=== PATIENT | female | born 1930 | race Caucasian/White ===

== ENCOUNTER → 2016-12-10 | Outpatient (CLI) | payer BC ==
[~2016-12-10] MED LIST: ASPI81TA28 PO; BUTA1CAP17 PO; CALC600T9 PO; CHOL20009 PO; CIPR-255 PO; CLOP1TAB15 PO; DESL1TAB5 PO; HYZ/50125 PO; LEVO25TA5 PO; PRAV10TA39 PO; SYN75 PO; TOPI25TA55 PO
[2016-12-10 13:29] LABS: ALT/SGPT 19 U/L (12-78); BLOOD UREA NITROGEN 21 mg/dl (7-18); BUN/CREATININE RATIO 16.5 (10-20); CALCIUM 9.5 mg/dl (8.5-10.1); CARBON DIOXIDE 27 mmol/L (21-32); CHLORIDE 108 mmol/L (98-107); CHOLESTEROL 179 mg/dl (0-200); GLUCOSE 99 mg/dl (70-99); POTASSIUM 3.9 mmol/L (3.5-5.1); SODIUM 140 mmol/L (136-145)
[2016-12-10 13:40] LABS: HDL CHOLESTEROL 60 mg/dl; THYROID STIMULATING HORMONE 0.845 uIu/ml (0.300-4.500); TRIGLYCERIDES 97 mg/dl (0-150); VERY LOW DENSITY LIPOPROT CALC 19 mg/dl
== END | disposition home or self-care (01) ==
LOC: C.LABMFLN 08:41
PROVIDERS: ATTEND Family Medicine
DX: G43.009 Migraine without aura, not intractable, without status migrainosus (principal); I10 Essential (primary) hypertension; E78.00 Pure hypercholesterolemia, unspecified; E03.9 Hypothyroidism, unspecified; L57.0 Actinic keratosis; E55.9 Vitamin D deficiency, unspecified

== ENCOUNTER 2017-01-03 09:38 | Emergency (ER) | payer BC ==
[~2017-01-03] VITALS: Ht 162.6 cm; Wt 75.9 kg
[~2017-01-03 09:38] MED LIST changes: -CALC600T9 PO; -SYN75 PO
[2017-01-03 09:40] VITALS: TEMP 36.7; Ht 162.6 cm; Wt 75.9 kg
[2017-01-03] MEDS ORDERED: SYN75 PO (10:21)
[2017-01-03] MEDS ORDERED: CALC600T9 PO (10:21)
--- NOTE | 2017-01-03 10:34 | EMERGENCY ROOM VISIT NOTE ---
History Report prepared by Lani: Leanna Gomez Under the Supervision of: Dr. Corby Stafford M.D. First contact with patient: 09:58 Chief Complaint: EYE ASSESSMENT Stated Complaint: VISION PROBLEMS - SEEING SPOTS History of Present Illness The patient is a 86 year old female who presents to the Emergency Room for an eye assessment. She states she is seeing black spots in her right eye. The symptoms started about 3-4 hours ago when she woke up. Her son states that it occurred yesterday but she did not tell anyone. 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 The patient has a history of migraines. The patient denies any pain in her right eye. She also denies a history of glaucoma. Source of History: patient, family (son) Onset: [employer] Position: eye (right) Quality: other (black spots) Timing: constant Note: Patient denies any pain. Review of Systems All systems have been listed, reviewed, and are negative other than those previously mentioned. Please see Additional Medical History Sheet. Past Medical & Surgical Medical Problems: (1) History of migraine (2) Hypertension (3) Pure Hypercholesterolem (4) TIA (transient ischemic attack) Family History Cancer Diabetes mellitus Gallbladder disease Heart disease Hypertension Kidney disease Kidney stones Lung disease Seizures Social History Smoking Status: Never Smoker Marital Status: single Housing Status: lives with family Occupation Status: retired Current/Historical Medications Scheduled Aspirin (Aspirin Ec), 81 MG PO DAILY Calcium Carbonate-Vitamin D (Calcium + D), 1 TAB PO DAILY Cholecalciferol (Vitamin D), 2,000 INTER.UNIT PO DAILY Clopidogrel (Plavix), 75 MG PO DAILY Hctz/Losartan (Hyzaar 12.5MG/50MG), 1 TAB PO DAILY Levothyroxine Sodium (Synthroid), 75 MCG PO QAM Topiramate (Topamax), 25 MG PO HS Scheduled PRN Svmcoxssqo-Kqzqsgxgfzdar-Zhiwu (Fioricet), 1 CAP PO Q8 PRN for Headache Allergies Coded Allergies: Atorvastatin (Verified Allergy, Unknown, UNKN, 01/03/17) Cholestyramine (Verified Allergy, Unknown, UNKN, 01/03/17) Ibandronic Acid (Verified Allergy, Unknown, unkn, 01/03/17) Simvastatin (Verified Allergy, Unknown, UNKN, 01/03/17) Physical Exam Vital Signs Date Time Temp Pulse Resp B/P (MAP) Pulse Ox O2 Delivery O2 Flow Rate FiO2 01/03/17 10:40 54 18 151/77 96 01/03/17 09:40 36.7 59 18 150/84 97 Room Air Physical Exam GENERAL: Patient awake, alert, oriented x 3. Patient follows commands. Patient does not appear toxic. Patient is adequately hydrated and well- nourished. Patient is under no distress. SKIN: No erythema, pallor, cyanosis or rash HEENT: Normal head, pupils equal, reactive to light and accommodation, EOMI. Limited funduscopic exam reveals normal discs vessels and background. Ears normal. Oral cavity and posterior pharynx appear normal. Neck: Without adenopathy, no neck vein distention. LUNGS: Clear to auscultation. No wheezes, no rales, no rhonchi. HEART: No murmurs. No gallops. No rubs. NEUROLOGIC: Cranial nerves II-XII within normal limits. No gross motor sensory function deficits. Medical Decision & Procedures ED Course 0958: Past medical records reviewed. The patient was evaluated in room A4B. A complete history and physical examination was performed. 1010: I spoke with Dr. Mcguire of ophthalmology regarding the patient's treatment plan. He felt that the patient did not need to be seen emergently today. He will follow-up with the patient in the office tomorrow morning. 1023: Upon reevaluation, the patient appeared to have improvement of her symptoms. I discussed today's findings with the patient and her son. They expressed understanding and verbalized agreement of the treatment plan. The patient was discharged home. Medical Decision The differential diagnoses includes retinal detachment, vitreous hemorrhage, glaucoma. The patient is here with black spots out of her right eye. 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 Exam today does not reveal any hemorrhages or obvious physical findings on funduscopic exam. I discussed care with Dr. Martino over the phone. He will follow the patient in his office tomorrow. He does not feel that anything requires treatment today. I discussed this with the patient and another family member. Most likely the patient has a small vitreous hemorrhage. Medication Reconcilliation Current Medication List: was personally reviewed by me Blood Pressure Screening Patient's blood pressure: Elevated blood pressure Blood pressure disposition: Elevated BP felt to be situational Consults Time Called: 1008 Consulting Physician: Dr. Mcguire Returned Call: [address] Mcguire of ophthalmology regarding the patient's treatment plan. He felt that the patient did not need to be seen emergently today. He will follow-up with the patient in the office tomorrow morning. Impression Primary Impression: Vitreous hemorrhage of right eye Scribe Attestation The scribe's documentation has been prepared under my direction and personally reviewed by me in its entirety. I confirm that the note above accurately reflects all work, treatment, procedures, and medical decision making performed by me. Departure Information Dispostion Home / Self-Care Referrals Art Guan M.D. (PCP) Romario Mcguire M.D. Forms HOME CARE DOCUMENTATION FORM, IMPORTANT VISIT INFORMATION, WORK / SCHOOL INSTRUCTIONS Patient Instructions My [facility] Additional Instructions Call Dr. Sosa's office tomorrow morning for an appointment tomorrow. Return here sooner if your vision gets much worse. REST
[2017-01-03 10:40] VITALS: BP 151/77; PULSE 54; O2SAT 96
== END 2017-01-03 10:42 | disposition home or self-care (01) ==
LOC: C.EDB 09:39 → C.EDA 10:42
DX: H43.11 Vitreous hemorrhage, right eye (principal); I10 Essential (primary) hypertension; E78.00 Pure hypercholesterolemia, unspecified; Z86.73 Personal history of transient ischemic attack (TIA), and cerebral infarction without residual deficits; Z79.82 Long term (current) use of aspirin; Z79.899 Other long term (current) drug therapy; Z88.8 Allergy status to other drugs, medicaments and biological substances; Z80.9 Family history of malignant neoplasm, unspecified; Z83.3 Family history of diabetes mellitus; Z83.79 Family history of other diseases of the digestive system; Z82.49 Family history of ischemic heart disease and other diseases of the circulatory system; Z84.1 Family history of disorders of kidney and ureter; Z82.0 Family history of epilepsy and other diseases of the nervous system

== ENCOUNTER 2017-05-07 18:04 | Emergency (ER) | payer BC ==
[~2017-05-07] VITALS: Ht 162.6 cm; Wt 79.0 kg
[~2017-05-07 18:04] MED LIST changes: +CALC600T9 PO; -CIPR-255 PO; -DESL1TAB5 PO; -LEVO25TA5 PO; -PRAV10TA39 PO; +SYN75 PO
[2017-05-07 18:25] VITALS: BP 149/86; PULSE 59; TEMP 36.4; O2SAT 97; Ht 162.6 cm; Wt 79.0 kg
--- NOTE | 2017-05-07 19:06 | EMERGENCY ROOM VISIT NOTE ---
ED Visit Note First contact with patient: 18:49 I have seen and examined this patient with Fransisco Gilmore and generally agree with the treatment plan as discussed. Problem List Medical Problems: (1) History of migraine Status: Chronic (2) Hypertension Status: Chronic (3) TIA (transient ischemic attack) Status: Resolved Current/Historical Medications Scheduled Aspirin (Aspirin Ec), 81 MG PO DAILY Calcium Carbonate-Vitamin D (Calcium + D), 1 TAB PO DAILY Cholecalciferol (Vitamin D), 2,000 INTER.UNIT PO DAILY Clopidogrel (Plavix), 75 MG PO DAILY Hctz/Losartan (Hyzaar 12.5MG/50MG), 1 TAB PO DAILY Levothyroxine Sodium (Synthroid), 75 MCG PO QAM Topiramate (Topamax), 25 MG PO HS Scheduled PRN Hqlfoxrcsr-Yeooidwrpmavz-Lotnm (Fioricet), 1 CAP PO Q8 PRN for Headache Allergies Coded Allergies: Atorvastatin (Verified Allergy, Unknown, UNKN, 01/03/17) Cholestyramine (Verified Allergy, Unknown, UNKN, 01/03/17) Ibandronic Acid (Verified Allergy, Unknown, unkn, 01/03/17) Simvastatin (Verified Allergy, Unknown, UNKN, 01/03/17) Vital Signs Date Time Temp Pulse Resp B/P (MAP) Pulse Ox O2 Delivery O2 Flow Rate FiO2 05/07/17 18:25 36.4 59 18 149/86 97 Room Air Departure Information Referrals Art Guan M.D. (PCP) Patient Instructions My [facility]
--- NOTE | 2017-05-07 19:44 | DIAGNOSTIC IMAGING REPORT ---
L FOREARM 2 VIEWS ROUTINE CLINICAL HISTORY: Fall. Left forearm injury trauma. Pain. COMPARISON: None. DISCUSSION: The bones and joint spaces appear intact. There is no evidence of fracture, dislocation or bony disease. There is no evidence for soft tissue swelling. IMPRESSION: Negative study. The above report was generated using voice recognition software. It may contain grammatical, syntax or spelling errors. Electronically signed by: Bird Hernandez M.D. 05/07/2017 7:43 PM Dictated Date/Time: 05/07/2017 7:42 PM
--- NOTE | 2017-05-07 19:46 | DIAGNOSTIC IMAGING REPORT ---
L HAND MIN 3 VIEWS ROUTINE CLINICAL HISTORY: Fall. Left hand pain trauma. Pain. COMPARISON: None. DISCUSSION: Moderate generalized degenerative change. No well-defined fracture. No evidence for dislocation. There is no evidence for soft tissue swelling. IMPRESSION: Degenerative change. No acute bony abnormality. The above report was generated using voice recognition software. It may contain grammatical, syntax or spelling errors. Electronically signed by: Bird Hernandez M.D. 05/07/2017 7:44 PM Dictated Date/Time: 05/07/2017 7:43 PM
--- NOTE | 2017-05-07 19:47 | DIAGNOSTIC IMAGING REPORT ---
R HAND MIN 3 VIEWS ROUTINE CLINICAL HISTORY: Fall. Right hand pain COMPARISON: None. DISCUSSION: Generalized degenerative change. No evidence for fracture or dislocation. There is no evidence for soft tissue swelling. IMPRESSION: Generalized degenerative change. No acute abnormality. The above report was generated using voice recognition software. It may contain grammatical, syntax or spelling errors. Electronically signed by: Bird Hernandez M.D. 05/07/2017 7:46 PM Dictated Date/Time: 05/07/2017 7:45 PM
--- NOTE | 2017-05-08 00:58 | EMERGENCY ROOM VISIT NOTE ---
History First contact with patient: 18:49 Chief Complaint: FALL Stated Complaint: FALL - LARGE SWELLING ON L ARM History of Present Illness The patient is a 87 year old female who presents to the Emergency Room with complaints of injury to bilateral hands and left forearm after falling earlier today. The patient states she was walking up a flight of stairs, when she fell forward onto her outstretched hands, and caused her injuries. She is on Plavix and aspirin, and has had noted bruising to the left arm particularly. The patient did not strike her head, abdomen, or legs. He was able to ambulate after the injury. No significant lacerations. She rates her overall discomfort a 2/10. Review of Systems More than 10 systems were reviewed and otherwise negative with the exception of history of present illness. Past Medical/Surgical History Medical Problems: (1) History of migraine (2) Hypertension (3) Pure Hypercholesterolem (4) TIA (transient ischemic attack) Family History Cancer Diabetes mellitus Gallbladder disease Heart disease Hypertension Kidney disease Kidney stones Lung disease Seizures Social History Smoking Status: Never Smoker Marital Status: single Housing Status: lives with family Occupation Status: retired Current/Historical Medications Scheduled Aspirin (Aspirin Ec), 81 MG PO DAILY Calcium Carbonate-Vitamin D (Calcium + D), 1 TAB PO DAILY Cholecalciferol (Vitamin D), 2,000 INTER.UNIT PO DAILY Clopidogrel (Plavix), 75 MG PO DAILY Hctz/Losartan (Hyzaar 12.5MG/50MG), 1 TAB PO DAILY Levothyroxine Sodium (Synthroid), 75 MCG PO QAM Topiramate (Topamax), 25 MG PO HS Scheduled PRN Zldvgoupnf-Hcecapwrhxieb-Lzxii (Fioricet), 1 CAP PO Q8 PRN for Headache Physical Exam Vital Signs Date Time Temp Pulse Resp B/P (MAP) Pulse Ox O2 Delivery O2 Flow Rate FiO2 05/07/17 18:25 36.4 59 18 149/86 97 Room Air Physical Exam VITALS: Vitals are noted on the nurse's note and reviewed by myself. Vital signs stable. GENERAL: Well-developed, well-nourished, white female, who is in no acute distress and resting comfortably. Patient is cooperative with the examination. HEAD: Normocephalic atraumatic. NECK: Supple without nuchal rigidity. No lymphadenopathy. No thyromegaly. Cervical spine is nontender. HEART: Regular rate and rhythm LUNGS: Clear to auscultation bilaterally without wheezes, rales or rhonchi. No retractions or accessory muscle use. MUSCULOSKELETAL: Bruising is noted to the lateral aspect of the left midforearm. There is tenderness in this area. There is additional tenderness into the mid palm of the left and right hands. Neurovascular status is intact bilateral upper extremities. No significant lacerations are noted. Neurovascular status is intact. No hip or lower extremity tenderness noted. NEURO: Patient was alert and oriented to person place and time. CN II through XII grossly intact. Medical Decision & Procedures ER Provider Diagnostic Interpretation: L FOREARM 2 VIEWS ROUTINE CLINICAL HISTORY: Fall. Left forearm injury trauma. Pain. COMPARISON: None. DISCUSSION: The bones and joint spaces appear intact. There is no evidence of fracture, dislocation or bony disease. There is no evidence for soft tissue swelling. IMPRESSION: Negative study. L HAND MIN 3 VIEWS ROUTINE CLINICAL HISTORY: Fall. Left hand pain trauma. Pain. COMPARISON: None. DISCUSSION: Moderate generalized degenerative change. No well-defined fracture. No evidence for dislocation. There is no evidence for soft tissue swelling. IMPRESSION: Degenerative change. No acute bony abnormality. R HAND MIN 3 VIEWS ROUTINE CLINICAL HISTORY: Fall. Right hand pain COMPARISON: None. DISCUSSION: Generalized degenerative change. No evidence for fracture or dislocation. There is no evidence for soft tissue swelling. IMPRESSION: Generalized degenerative change. No acute abnormality. ED Course Physical exam and history were performed. Nursing notes, EMR, and Medication List were personally reviewed. Patient appears to have fallen up stairs causing injury to her bilateral hands and her left arm. The patient does not appear to have struck her head and does not have outward signs of trauma around the head, neck, or lower extremities. X -rays were obtained and reviewed by myself and radiology showing no acute fractures or dislocations. The case was discussed with my attending physician, Dr. Queen, who also independently evaluated the patient. We feel that she is well for discharge home. She may use Tylenol and ice for pain control. She is to follow with her primary care physician with any ongoing or persistent symptoms. She was pleased with plan of care and voiced understanding. She was discharged home under the care of of her son. The chart was completed utilizing [employer] Voice Recognition Software. Grammatical errors, random word insertions, pronoun errors, and incomplete sentences are an occasional consequence of this system due to software limitations, ambient noise, and hardware issues. Any formal questions or concerns about the content, text, or information contained within the body of this dictation should be directly addressed to the provider for clarification. . Medical Decision Differential diagnosis includes, but is not limited to: Sprain, strain, fracture , dislocation, subluxation, contusion, and others Impression Primary Impression: Fall Additional Impression: Contusion of multiple sites Departure Information Dispostion Home / Self-Care Condition GOOD Referrals Art Guan M.D. (PCP) Forms HOME CARE DOCUMENTATION FORM, IMPORTANT VISIT INFORMATION Patient Instructions My [facility] Additional Instructions You were seen and evaluated today on an emergency basis only. This is not a substitute for, or an effort to provide, complete comprehensive medical care. It is not possible to recognize and treat all injuries or illnesses in a single emergency department visit. For this reason it is recommended that you followup with your primary care physician next week for recheck. You may use Tylenol 1000 mg every 6-8 hours as needed for pain control. Apply ice, 20 minutes on and 20 minutes off for additional pain and swelling control. You are welcome to return to the emergency department anytime with new, worsening, or concerning symptoms. Problem Qualifiers
== END 2017-05-07 20:17 | disposition home or self-care (01) ==
LOC: C.EDB 18:05 → C.EDD 20:17
DX: S60.221A Contusion of right hand, initial encounter (principal); S60.222A Contusion of left hand, initial encounter; S50.12XA Contusion of left forearm, initial encounter; W10.9XXA Fall (on) (from) unspecified stairs and steps, initial encounter; I10 Essential (primary) hypertension; E78.5 Hyperlipidemia, unspecified; G43.909 Migraine, unspecified, not intractable, without status migrainosus; Z86.73 Personal history of transient ischemic attack (TIA), and cerebral infarction without residual deficits; Z83.3 Family history of diabetes mellitus; Z82.49 Family history of ischemic heart disease and other diseases of the circulatory system; Z82.0 Family history of epilepsy and other diseases of the nervous system; Z84.1 Family history of disorders of kidney and ureter; Z79.01 Long term (current) use of anticoagulants; Z79.82 Long term (current) use of aspirin